=== PATIENT | male | born 1945 | race Caucasian/White ===

== ENCOUNTER 2021-01-21 20:29 | Emergency (ER) | payer MEDICARE, OTHER ==
[~2021-01-21] VITALS: Ht 182.9 cm; Wt 72.7 kg
--- NOTE | 2021-01-21 20:40 | PHYS DOC ---
Adult General Chief Complaint Chief Complaint: SHORTNESS OF BREATH HPI HPI Patient is a 75-year-old male with a past medical history significant for A. fib on Eliquis who presents to the emergency department with a chief complaint of left-sided scapular pain that started after eating with feelings of shortness of breath. States he has been doing well up to this point. Denies any recent travel, traumas, illnesses, fevers, known ill contacts, Covid/flu/cold symptoms, chest pain, abdominal pain, nausea, vomiting, dysuria, hematuria or blood in the stool. Denies any dyspnea on exertion, orthopnea, PND or edema. States she is taking all his medications as prescribed. States he is eating and drinking normally for him. States he is making urine and stool normally for him. Review of Systems Review of Systems Review of systems otherwise unremarkable except noted in HPI Physical Exam Physical Exam Constitutional: Well developed, well nourished, no acute distress, non-toxic appearance. [] HENT: Normocephalic, atraumatic, bilateral external ears normal, oropharynx moist, no oral exudates, nose normal. [] Eyes:conjunctiva normal, no discharge. [] Neck: Normal range of motion, no tenderness, supple, no stridor. [] Cardiovascular: Sinus tachycardia Lungs & Thorax: Bilateral breath sounds clear to auscultation [] Abdomen: soft, no tenderness, no masses, no pulsatile masses. [] Skin: Warm, dry, no erythema, no rash. [] Back: No tenderness, no CVA tenderness. [] Extremities: No tenderness, no cyanosis, no clubbing, ROM intact, no edema. [] Neurologic: Alert and oriented X 3, normal motor function, normal sensory function, no focal deficits noted. [] Psychologic: Affect normal, judgement normal, mood normal. [] EKG EKG EKG with a rate of 97, QRS of 92, QTc of 459, A. fib, no STEMI [] Radiology/Procedures Radiology/Procedures []EXAM: AP View of the chest DATE: 01/21/2021 9:10 PM INDICATION: Reason: SOA / Spl. Instructions: / History: COMPARISON: No Prior FINDINGS: The heart is not enlarged. Aortic calcifications are seen. Small left pleural effusion. Patchy opacities left lung base likely multifocal consolidative process such as pneumonia. Linear opacities right lung base likely scarring/atelectasis. No pneumothorax. Age-indeterminate bilateral AC separation, greater displacement on the left. IMPRESSION: 1. Small left pleural effusion. 2. Patchy opacities left lung base likely multifocal consolidative process such as pneumonia. 3. Age-indeterminate bilateral AC separation, greater displacement on the left. Heart Score C/O Chest Pain: No Risk Factors: Risk Factors: DM, Current or recent (<one month) smoker, HTN, HLP, family history of CAD, obesity. Risk Scores: Risk Factors: DM, Current or recent (<one month) smoker, HTN, HLP, family history of CAD, obesity. Course & Med Decision Making Course & Med Decision Making Patient is a 75-year-old male who presents with a chief complaint of scapular pain and feelings of shortness of breath just after eating Vital signs notable for sinus tachycardia and hypertension. Physical exam noted above. Patient alert and oriented in no acute distress. EKG noted above with A. fib at 97. Laboratory analysis notable for mild elevation in creatinine and elevated D- dimer. Chest x-ray suspicious for pneumonia and pleural effusion. CT with no pulmonary embolism, and signs of bronchitis. Covid swab pending. Due to concern for pneumonia, patient started on Levaquin in the ED. Discussed all findings with patient and advised a course of antibiotics. Advised to call primary care physician first thing in the morning. Given strict return precau tions to the ED. Advised on quarantine at home over the next couple of days until Covid swab results. Patient grateful, verbalized understanding and agreed with plan of discharge. Dragon Disclaimer Dragon Disclaimer This electronic medical record was generated, in whole or in part, using a voice recognition dictation system. Departure Departure: Impression: Primary Impression: Pneumonia Additional Impression: Person under investigation for COVID-19 Disposition: HOME / SELF CARE / HOMELESS Condition: GOOD Referrals: SERGIO DAIGLE MD (PCP) Patient Instructions: Pneumomediastinum Additional Instructions: Please read all of the attached information. Please take your antibiotics as prescribed. You can use [id number] cold medications as needed. Please call your primary care physician first thing in the morning to update on ED visit and set up a follow-up this week if possible. Please come back to the emergency department immediately with new or concerning symptoms. You have been tested for COVID-19. It is an infection caused by a new type of coronavirus. COVID-19 will cause cold-like or mild flu symptoms in most. It can cause more severe symptoms like problems breathing in some. There is no treatment for COVID-19. The body will clear the infection over time. Self-care will help to ease discomfort. Steps to Take: Self-Care Rest as needed. Healthy habits may help you feel better. Steps include: Choose healthy foods including fruits and vegetables. Drink water throughout the day. Get plenty of sleep each night. If you smoke, try to quit. It may ease breathing. Avoid alcohol. Keep Others Healthy The virus can spread to others. Droplets are released every time you sneeze or cough. The droplets can get into the mouth, nose, or eyes of people near you and lead to infection. To lower the chances of spreading COVID-19 to others: Stay at home until your doctor has said it is safe to leave. If you tested positive this will mean staying isolated until both of the following are true: At least 7 days have passed since the start of illness. You are free of fever for at least 72 hours without the use of medicine. During this time: - Avoid public areas, events, or transportation. Do not return to work or school until your doctor has said it is safe to do so. - Call ahead if you need to go to a medical center. Let them know you may have COVID-19. It will help them guide you where to go. They may also ask you to wear a facemask when you come to the office. - If you call for emergency medical services, let them know you may have COVID- 19. While at home: - Try to avoid close contact with others. Stay about 6 feet away. - If possible, spend most of your time in a separate room from others. - Use a face mask if you will be in close contact with others such as sharing a room or vehicle. - Have someone wipe down common surfaces in the home. Use household ship boss every day on areas like doorknobs, counters, or sinks. - Cough or sneeze into a tissue. Throw the tissue away right after use. If a tissue is not available, cough or sneeze into your elbow. - Wash your hands often. Wash them after sneezing or coughing. Use soap and water and wash for at least 20 seconds. Alcohol based hand last cleaner can be used if soap and water is not available. - Do not prepare food for others. Avoid sharing personal items like forks, spoons, or toothbrushes. - Avoid close contact with pets while you are sick. There is no evidence of the virus passing to pets. This is a safety step until more is known about this virus. Isolation can be frustrating. Social interaction can help. Keep in touch with friends and family through phone and tech options. You can still interact with others in your home, just keep a safe distance of about 6 feet. Follow-up: Your doctors office will check in with you to see if there are any changes in your health. You may be asked to keep track of symptoms to share with them. They will also let you know when you are clear to be in public again. Problems to Look Out For: Contact your doctor if your recovery is not going as you expect. Get emergency care if you have problems such as: - Trouble breathing - Nonstop chest pain or pressure - Changes in awareness, confusion, or problems waking - Lips or face have bluish color - Worsening of symptoms If you think you have an emergency, call for emergency medical services right away. [facility] Levofloxacin (LEVOFLOXACIN) 500 Mg Tablet 1 TAB PO DAILY for pneumonia, #6 TAB Prov: TONY MILTON MD 01/21/21 Problem Qualifiers TONY MILTON MD Jan 21, 2021 20:40
--- NOTE | 2021-01-21 21:49 | RAD ---
EXAM: AP View of the chest DATE: 01/21/2021 9:10 PM INDICATION: Reason: SOA / Spl. Instructions: / History: COMPARISON: No Prior FINDINGS: The heart is not enlarged. Aortic calcifications are seen. Small left pleural effusion. Patchy opacities left lung base likely multifocal consolidative process such as pneumonia. Linear opacities right lung base likely scarring/atelectasis. No pneumothorax. Age-indeterminate bilateral AC separation, greater displacement on the left. IMPRESSION: 1. Small left pleural effusion. 2. Patchy opacities left lung base likely multifocal consolidative process such as pneumonia. 3. Age-indeterminate bilateral AC separation, greater displacement on the left. Electronically signed by: Olu Capone MD (01/21/2021 9:46 PM) [facility]
[2021-01-21 21:53] LABS: BASO % 0 % (0-3); EOS % 0 % (0-3); HEMATOCRIT 34.3 % (39.0-53.0); HEMOGLOBIN 11.7 g/dL (13.0-17.5); LYMPH # 0.7 x10^3/uL (1.0-4.8); LYMPH % 9 % (24-48); MEAN CORPUSCULAR HEMOGLOBIN 34 pg (25-35); MEAN CORPUSCULAR HGB CONC 34 g/dL (31-37); MEAN CORPUSCULAR VOLUME 99 fL (79-100); MONO # 0.5 x10^3/uL (0.0-1.1); MONO % 7 % (0-9); NEUT # 6.2 x10^3uL (1.8-7.7); NEUT % 84 % (31-73); PLATELET COUNT 110 x10^3/uL (140-400); RED BLOOD COUNT 3.47 x10^6/uL (4.30-5.70); RED CELL DISTRIBUTION WIDTH 13.2 % (11.5-14.5); WHITE BLOOD COUNT 7.4 x10^3/uL (4.0-11.0)
--- NOTE | 2021-01-21 21:59 | EKG ---
[address] [address] Test Date: 2021-01-21 Test Time: 21:28:17 Pat Name: CHARLES WALLS Department: Room: Gender: M Physical Instructor: : 1945 Requested By: TONY MILTON Order Number: [id number] Reading MD: Measurements Intervals [place] Rate: 97 P: NV: QRS: 71 QRSD: 92 T: 70 QT: 358 QTc: 459 Interpretive Statements IRREGULAR RHYTHM, NO P-WAVE FOUND LOW LIMB LEAD VOLTAGE NO SPECIFIC ECG ABNORMALITIES RI6.02 No previous ECG available for comparison
[2021-01-21] MEDS ORDERED: levoFLOXacin 500 MG TABLET PO ONE (22:00)
[2021-01-21] MEDS ORDERED: ACETAMINOPHEN 500 MG TABLET PO ONE (22:00)
[2021-01-21 22:14] LABS: CREATININE 1.5 mg/dL (0.7-1.3); GFR 45.4; POTASSIUM 4.4 mmol/L (3.5-5.1)
[2021-01-21 22:20] LABS: ALBUMIN 3.8 g/dL (3.4-5.0); ALBUMIN/GLOBULIN RATIO 1.1 (1.0-1.7); TOTAL BILIRUBIN 0.3 mg/dL (0.2-1.0); TOTAL PROTEIN 7.4 g/dL (6.4-8.2)
[2021-01-21] MEDS ORDERED: IOHEXOL 350 MG/ML 100 ML VIAL. IV ONE (22:30)
--- NOTE | 2021-01-21 23:20 | RAD ---
Exam: CT chest with contrast INDICATION: Shortness of breath, elevated d-dimer TECHNIQUE: Sequential axial images through the chest obtained following the administration of 75 mL o f Omni 350 IV contrast. Sagittal and coronal reformatted images were reconstructed from the axial aruna a and reviewed. 3-D reformatted images were reconstructed from the axial data and reviewed. Comparisons: Chest x-ray same day FINDINGS: Visualized portions of the thyroid are unremarkable. No enlarged mediastinal lymph nodes. Heart size is normal. No pericardial effusion. Mild coronary artery calcium. Thoracic aorta has a nor mal course and caliber. Pulmonary artery is not enlarged. No pulmonary embolus identified within the main, lobar or segmental pulmonary arteries. Airways are patent. Mild bronchial wall thickening is noted at the lower lobes bilaterally. No consol idation or pneumothorax. No suspicious lung nodules are identified. Trace bilateral pleural effusions. There is mild stranding noted in the order hepatic region. No suspicious osseous lesions or acute fractures. IMPRESSION: 1. No pulmonary embolus identified within the main, lobar or segmental pulmonary arteries. 2. Mild bronchial wall thickening noted at the lower lobes bilaterally, may relate to bronchitis. 3. Small amount of edema noted in the medhat hepatic region which is nonspecific. Correlate with symp tomatology to determine the need for dedicated abdominal imaging. Exposure: One or more of the following in the visualized dose reduction techniques were utilized for this examination: 1. Automated exposure control 2. Adjustment of the MA and/or KV according to patient size 3. Use of iterative of reconstructive technique Electronically signed by: Ivana Beach MD (01/21/2021 11:17 PM) [facility]
[2021-01-21 23:22] VITALS: BP 145/91
[2021-01-21] MEDS ORDERED: LEVO500T8 PO (23:34)
== END 2021-01-21 23:49 | disposition home or self-care (01) ==
LOC: ER 20:29
DX: J18.9 Pneumonia, unspecified organism (principal); Z20.822 Contact with and (suspected) exposure to COVID-19; J90 Pleural effusion, not elsewhere classified; I48.91 Unspecified atrial fibrillation
CPT/HCPCS: 36415; 71045; 71275; 80053; 84484; 85025; 85379; 93005; 99285; C9803; Q9967; U0003; U0005

== ENCOUNTER 2021-01-24 07:44 | Emergency (ER) | payer MEDICARE, OTHER ==
[~2021-01-24] VITALS: Ht 182.9 cm; Wt 72.7 kg
[~2021-01-24 07:44] MED LIST: LEVO500T8 PO
[2021-01-24 08:09] LABS: BASO % 0 % (0-3); EOS % 0 % (0-3); HEMATOCRIT 37.4 % (39.0-53.0); HEMOGLOBIN 12.5 g/dL (13.0-17.5); LYMPH # 0.9 x10^3/uL (1.0-4.8); LYMPH % 10 % (24-48); MEAN CORPUSCULAR HEMOGLOBIN 34 pg (25-35); MEAN CORPUSCULAR HGB CONC 34 g/dL (31-37); MEAN CORPUSCULAR VOLUME 101 fL (79-100); MONO # 0.6 x10^3/uL (0.0-1.1); MONO % 7 % (0-9); NEUT # 7.9 x10^3uL (1.8-7.7); NEUT % 84 % (31-73); PLATELET COUNT 60 x10^3/uL (140-400); RED BLOOD COUNT 3.71 x10^6/uL (4.30-5.70); RED CELL DISTRIBUTION WIDTH 13.6 % (11.5-14.5); WHITE BLOOD COUNT 9.4 x10^3/uL (4.0-11.0)
[2021-01-24 08:33] LABS: ALBUMIN 3.7 g/dL (3.4-5.0); ALBUMIN/GLOBULIN RATIO 0.9 (1.0-1.7); CALCIUM 8.9 mg/dL (8.5-10.1); CREATININE 1.9 mg/dL (0.7-1.3); GFR 34.5; POTASSIUM 4.2 mmol/L (3.5-5.1); TOTAL BILIRUBIN 1.1 mg/dL (0.2-1.0); TOTAL PROTEIN 7.6 g/dL (6.4-8.2)
[2021-01-24 11:15] VITALS: BP 125/78
[2021-01-24 13:57] LABS: BACTERIA,URINE FEW /HPF (0-FEW); BILIRUBIN,URINE NEG (NEG); CLARITY,URINE HAZY; COLOR,URINE YELLOW; GLUCOSE,URINE NEG (NEG); GRANULAR CASTS,URINE OCC /HPF; NITRITE,URINE NEG (NEG); SQUAMOUS EPITHELIAL CELL,UR FEW /LPF; UROBILINOGEN,URINE 0.2 mg/dL (0.2 mg/dL)
== END 2021-01-24 12:20 | disposition short-term general hospital (02) ==
LOC: ER 07:44
DX: G40.909 Epilepsy, unspecified, not intractable, without status epilepticus (principal); I48.20 Chronic atrial fibrillation, unspecified; N17.9 Acute kidney failure, unspecified; R11.2 Nausea with vomiting, unspecified; I10 Essential (primary) hypertension; Z88.8 Allergy status to other drugs, medicaments and biological substances
CPT/HCPCS: 36415; 74022; 80053; 80183; 81001; 82550; 83605; 83690; 83735; 83880; 84484; 85025; 87449; 93005; 96361; 96365; 96366; 96368; 96375; 96376; 99285; J1953; J2405; J3475; J3490; J7030